=== PATIENT | female | born 1995 | race Hispanic/Latino ===

== ENCOUNTER 2017-04-09 20:40 | Outpatient (CLI) | payer OTHER, SELFPAY ==
[~2017-04-09] VITALS: Ht 154.9 cm; Wt 68.0 kg
[2017-04-09 20:50] VITALS: BP 125/73
[2017-04-09] MEDS ORDERED: LR 1,000 ML IV SCH (21:10)
[2017-04-09] MEDS ORDERED: LACTATED RINGER'S 1000 ML IV ONE (21:15)
[2017-04-09 21:32] LABS: MEAN CORPUSCULAR HEMOGLOBIN 32.4 pg (27.0-33.0); MEAN CORPUSCULAR HGB CONC 33.9 g/dl (32.0-36.5); MEAN CORPUSCULAR VOLUME 95.4 fl (80.0-96.0); RED CELL DISTRIBUTION WIDTH 12.8 % (11.5-14.5); WHITE BLOOD COUNT 6.8 K/mm3 (4.0-10.0)
[2017-04-09] MEDS ORDERED: TERBUTALINE SULFATE 1 MG/ML VIAL (J3105) As Ordered ONE (21:33)
[2017-04-09 21:36] VITALS: BP 114/57
[2017-04-09 22:09] VITALS: BP 125/58
[2017-04-09] MEDS: TERBUTALINE SULFATE 1 MG/ML VIAL (J3105) SC SCH ×2 (22:11→22:45)
--- NOTE | 2017-04-09 22:41 | HPE ---
DATE OF ADMISSION: 04/09/2017 This lady is a 21-year-old 2, para 1, LMP 08/04/2016, EDC 05/11/2017 at 35 and 3 weeks of gestation with a history of contractions since Monday. [place] the park this [place] and the contractions worsened so she came in. No loss of fluid or vaginal discharge. PAST HISTORY: October 2012 at 39 weeks, spontaneous vaginal delivery, epidural, male 6 pounds 12 ounces. Labs are A+, HIV negative, hepatitis negative, RPR negative, rubella immune. Varicella by history. Pap normal. Urine negative. Gonorrhea and chlamydia negative. 1-hour glucose 85. The patient is Zika negative. She had been in [place] recently and was tested. On examination she appeared to be distressed. Symphysis fundus height is 35. Category one strip. Cervix is 1 cm, maybe to mid position, -3 station, 50% effaced. No vaginal bleeding, loss or discharge. Four quadrant bowel sounds are noted and the uterus is nontender. Blood pressure 125/93, respirations 18, pulse 88, temperature 98.4. Urine 1.005, pH 7, +2 leukocytes. Our plan of management is to hydrate the patient in anticipation of trying to decrease the contractions. A series of terbutaline to be instituted and if she is at potential risk for delivery, then steroids will be initiated to enhance lung maturity. We will evaluate her in 1 hour time to see if things have quieted down. If she persists, we will pursue the steroid approach. The rest of the examination is unremarkable. She is normocephalic, atraumatic. Neck full range of motion. Pupils equal and reactive to light. Distal pulses symmetric. No evidence of DVT, PE or superficial phlebitis. Lungs are clear bilaterally to bases. No wheezes or rhonchi. No CVA tenderness. No rashes, lesions or pruritus. No arthralgia, myalgia. No complaints of cough, wheezes, shortness of breath or dyspnea on exertion. No chest pain. Not bleeding. Neurologically complete. No incontinency, urgency or frequency. No nausea, vomiting, diarrhea or constipation. No diabetic issues. No ENGINEERING OFFICER issues. Past medical and surgical history is unremarkable. Family history is noncontributory. She does not smoke or drink. She does not abuse drugs. She is . She is a housewife. There is no domestic violence. In summary, we have a 35 and 5 weeks of gestation who has had 3 days of intermittent contractions, question as to whether she will pursue on for delivery or not and we will hydrate, terbutaline and possibly use of steroids.
[2017-04-10] MEDS ORDERED: BETAMETHASONE SOLUSPAN 6MG/ML INJ 5ML (J0702) IM SCH (01:00)
== END 2017-04-10 01:20 | disposition home or self-care (01) ==
LOC: M LDO 20:40
PROVIDERS: ATTEND Obstetrics & Gynecology
DX: O47.03 False labor before 37 completed weeks of gestation, third trimester (principal); Z3A.35 35 weeks gestation of pregnancy
CPT/HCPCS: 59025; 85027; 86780; 86850; 86900; 86901; 96372; J0702; J3105

== ENCOUNTER 2017-04-10 12:07 | Outpatient (CLI) | payer OTHER, SELFPAY ==
[~2017-04-10] VITALS: Ht 154.9 cm; Wt 68.0 kg
[2017-04-10 12:23] VITALS: BP 103/55
[2017-04-10] MEDS ORDERED: BETAMETHASONE SOLUSPAN 6MG/ML INJ 5ML (J0702) IM ONE (12:30)
[2017-04-10 12:51] VITALS: BP 93/52
[2017-04-10 13:51] VITALS: BP 114/57
== END 2017-04-10 13:55 | disposition home or self-care (01) ==
LOC: M LDO 12:07
PROVIDERS: ATTEND Student in an Organized Health Care Education/Training Program
DX: O47.03 False labor before 37 completed weeks of gestation, third trimester (principal); Z3A.35 35 weeks gestation of pregnancy

== ENCOUNTER 2017-04-13 19:13 | Outpatient (CLI) | payer OTHER ==
[~2017-04-13] VITALS: Ht 154.9 cm; Wt 68.0 kg
[2017-04-13 19:19] VITALS: BP 118/64
[2017-04-13] MEDS ORDERED: PRENTAB55 PO (20:09)
== END 2017-04-13 20:21 | disposition home or self-care (01) ==
LOC: M LDO 19:13
PROVIDERS: ATTEND Obstetrics & Gynecology
DX: O60.03 Preterm labor without delivery, third trimester (principal); Z3A.36 36 weeks gestation of pregnancy

== ENCOUNTER 2017-04-26 01:47 | Outpatient (CLI) | payer OTHER ==
[~2017-04-26] VITALS: Ht 154.9 cm; Wt 69.0 kg
[~2017-04-26 01:47] MED LIST: PRENTAB55 PO
--- NOTE | 2017-04-26 19:22 | HPE ---
DATE OF ADMISSION: 04/26/2017 This lady is a 22-year-old 2, para 1, last menstrual period (LMP) 08/04/2016, estimated date of confinement (EDC) 05/11/2017 at 37 weeks of gestation, had a history of postcoital bleeding after intercourse with contractions. PAST HISTORY: 2013: 39 weeks spontaneous vaginal delivery male, epidural, 6 pounds 1 ounce. LABORATAORY: A+, HIV negative, hepatitis negative, RPR negative, rubella immune. Varicella by history. Pap normal. Group B Streptococcus (GBS) negative. Gonorrhea and chlamydia are negative. Urine was negative. A one-hour glucose was 85. On examination, no distress. Symphysis fundus height is 37, vertex, occiput anterior (OA) posterior high. Cervix is soft, thick. Multiple os. Scant bleeding. Uterine irritability is noted on the monitor. Category one strip. No contractions after an hour and one-half. Urine is 1005, pH 7, negative, negative, negative. Blood pressure 115/66, respirations 18, pulse 83 and temperature 98.4. The rest the examination is unremarkable. She has category one strip. Normocephalic, atraumatic. Pupils equal and reactive to light. Neck: Full range of motion. Distal pulses symmetric. No evidence of deep venous thrombosis (DVT), pulmonary embolism (PE) or superficial phlebitis. CHEST: Clear bilaterally to bases. No wheezes or rhonchi. No costovertebral angle (CVA) tenderness. Four quadrant bowel sounds. Appropriate symphysis fundus height. I mentioned category one strip. No rashes, lesions or pruritus. No arthralgia or myalgia. No complaints of cough, wheezes, shortness of breath or dyspnea on exertion. No chest pain, not bleeding. Neurologically complete. No incontinency, urgency or frequency. No nausea, vomiting, diarrhea or constipation. No diabetic issues. PAST GYNECOLOGICAL (DATA WAREHOUSING ENGINEER) HISTORY: None. PAST MEDICAL HISTORY: None. PAST SURGICAL HISTORY: None. FAMILY HISTORY: Noncontributory. SOCIAL HISTORY: Does not smoke, drink or abuse drugs. She is . There is no domestic violence. Good support from the . We have a 37-week who has some postcoital bleeding after intercourse. Precautions were given. Has appointment today at the office, which we told her she can cancel and make for next week. Again, 37+ week of gestation. Category one. Minimal irritability. Patient tolerated procedure well. No evidence of active bleeding. Discharged undelivered.
== END 2017-04-26 05:26 | disposition home or self-care (01) ==
LOC: M LDO 01:47
PROVIDERS: ATTEND Obstetrics & Gynecology
DX: O99.89 Other specified diseases and conditions complicating pregnancy, childbirth and the puerperium (principal); N93.0 Postcoital and contact bleeding; Z3A.37 37 weeks gestation of pregnancy

== ENCOUNTER 2017-05-05 08:23 | Inpatient (IN) | payer OTHER ==
[2017-05-05] VITALS (10 sets, daily range): BP systolic 111–129; BP diastolic 56–84
[2017-05-05] MEDS ORDERED: LACTATED RINGER'S 1000 ML IV STA (08:56)
[2017-05-05] MEDS: DOCUSATE SODIUM 100 MG CAP PO SCH ×2 (09:00→20:13)
[2017-05-05] MEDS: PRENATAL VITAMINS CHEWABLE TABLET PO SCH (09:00)
[2017-05-05] MEDS ORDERED: OXYTOCIN INJ 10 UNITS/ML VIAL (J2590) IV ONE (09:35)
[2017-05-05] MEDS ORDERED: DIBUCAINE 1% OINTMENT 30GM TOP PRN (10:00)
[2017-05-05] MEDS ORDERED: METHYLERGONOVINE MALEATE 0.2 MG/ML VIAL (J2210) IM PRN (10:00)
[2017-05-05] MEDS ORDERED: ACETAMINOPHEN 500 MG TAB PO PRN (10:00)
[2017-05-05] MEDS ORDERED: IBUPROFEN 800 MG TAB PO PRN (10:00)
[2017-05-05] MEDS ORDERED: PROMETHAZINE 25 MG TAB PO PRN (10:00)
[2017-05-05] MEDS ORDERED: MEASLES,MUMPS,RUBELLA VACCINE INJ (MMR-II) (90707) SC SCH (10:00)
[2017-05-05] MEDS ORDERED: ONDANSETRON 4MG/2ML VIAL (J2405) IV PRN (10:00)
[2017-05-05] MEDS ORDERED: OXYTOCIN DRIP 30 UNITS in APPROPRIATE DILUENT 1 EA IV SCH (10:00)
[2017-05-05] MEDS ORDERED: RHOGAM 300 MCG (1500 IU) INJ (J2790) IM SCH (10:00)
[2017-05-05 18:46] LABS: MEAN CORPUSCULAR HEMOGLOBIN 32.2 pg (27.0-33.0); MEAN CORPUSCULAR HGB CONC 33.4 g/dl (32.0-36.5); MEAN CORPUSCULAR VOLUME 96.3 fl (80.0-96.0); RED CELL DISTRIBUTION WIDTH 13.2 % (11.5-14.5); WHITE BLOOD COUNT 10.2 K/mm3 (4.0-10.0)
[2017-05-06 05:30] VITALS: BP 119/58
--- NOTE | 2017-05-06 07:44 | DS.PDOC ---
Discharge Summary General Date of Admission May 05, 2017 at 08:47 Date of Discharge [id number] Discharge Summary PROCEDURES PERFORMED DURING STAY: spontaneous vaginal delivery ADMITTING DIAGNOSIS: 1. Active Labor DISCHARGE DIAGNOSES: 1. Healthy male infant HOSPITAL COURSE: Admitted for active labor and delivery. Uncomplicated, see delivery note. DISCHARGE MEDICATIONS: Motrin, Tylenol, Colace, Lanolin Physical exam: see note from this morning LABORATORY DATA: Please see below. ACTIVITY: as tolerated. Nothing in vagina for 6 weeks. DIET: regular DISPOSITION:stable TIME SPENT ON DISCHARGE: Greater than 15 minutes. Sessions Vital Signs/I&Os Vital Signs Date Time Temp Pulse Resp B/P (MAP) Pulse Ox O2 Delivery O2 Flow Rate FiO2 05/06/17 05:30 98.0 66 20 119/58 (78) 97 Room Air I&O- Last 24 Hours up to 6 AM 05/06/17 05:59 Output Total 1100 ml Balance -1100 ml Laboratory Data Labs 24H Laboratory Tests 2 05/05/17 08:54: Serology Scanned Report Hepatitis B Testing 05/05/17 18:31: Syphilis Serology NONREACTIVE CBC/BMP Laboratory Tests 05/05/17 18:31 Red Blood Count 3.86 L, Mean Corpuscular Volume 96.3 H, Mean Corpuscular Hemoglobin 32.2, Mean Corpuscular Hemoglobin Concent 33.4, Red Cell Distribution Width 13.2 Discharge Medications Scheduled Multivitamins/ ( 19) 1 Tab Tab, 1 TAB PO DAILY, (Reported) Allergies Coded Allergies: No Known Allergies (Unverified , 04/09/17) SESSIONS,SHELIA Davis MD May 06, 2017 07:44
--- NOTE | 2017-05-06 07:48 | IPNPDOC ---
Text Note Date of Service The patient was seen on 05/06/17. NOTE PPD1 prog note States feeling well, no complaints. No heavy VB. Pain controlled. Voiding, ambulatory. Bonding well and breast feeding well. VSSAF CTAB RRR Ut at U-2, firm Ext no CCE a/p: Doing well. d/c this morning. To bonding if baby not released. Sessions Josse MARIEE, I+O Josse CASTANO I+O Laboratory Tests 05/05/17 18:31 Red Blood Count 3.86 L, Mean Corpuscular Volume 96.3 H, Mean Corpuscular Hemoglobin 32.2, Mean Corpuscular Hemoglobin Concent 33.4, Red Cell Distribution Width 13.2 Vital Signs Date Time Temp Pulse Resp B/P (MAP) Pulse Ox O2 Delivery O2 Flow Rate FiO2 05/06/17 05:30 98.0 66 20 119/58 (78) 97 Room Air I&O- Last 24 Hours up to 6 AM 05/06/17 06:00 Output Total 1100 ml Balance -1100 ml SESSIONS,SHELIA Davis MD May 06, 2017 07:48
[2017-05-06] MEDS: DOCUSATE SODIUM 100 MG CAP PO SCH (08:01)
[2017-05-06] MEDS: PRENATAL VITAMINS CHEWABLE TABLET PO SCH (08:01)
[2017-05-06] MEDS ORDERED: IBUP-1114 PO (12:33)
[2017-05-06] MEDS ORDERED: ACET50TA PO (12:33)
[2017-05-06] MEDS ORDERED: COLA100C5 PO (12:33)
== END 2017-05-06 19:40 | disposition home or self-care (01) | DRG 775 ==
LOC: M LDO 08:23 → M LDI 08:47 → M OBS 11:53
PROVIDERS: ADMIT Obstetrics & Gynecology; ATTEND Obstetrics & Gynecology
PROC: 10E0XZZ Delivery of Products of Conception, External Approach (ICD-10-PCS; principal; 2017-05-05)
DX: O80 Encounter for full-term uncomplicated delivery (principal); Z3A.39 39 weeks gestation of pregnancy; Z37.0 Single live birth

== ENCOUNTER 2017-09-21 16:59 | Emergency (ER) | payer OTHER | END 2017-09-21 19:00 | disposition home or self-care (01) | LOC: M ED 16:59 | DX: Z04.1 Encounter for examination and observation following transport accident (principal); M62.830 Muscle spasm of back; V43.52XA Car driver injured in collision with other type car in traffic accident, initial encounter; Y92.410 Unspecified street and highway as the place of occurrence of the external cause; Z79.3 Long term (current) use of hormonal contraceptives | CPT/HCPCS: 99283 ==

== ENCOUNTER 2018-09-26 07:15 | Day surgery (SDC) | payer OTHER ==
[~2018-09-26] VITALS: Ht 154.9 cm; Wt 59.3 kg
[~2018-09-26 07:15] MED LIST changes: +ADVI200T PO; +COLA100C5 PO; +CYCL10TA PO; +IBUP-1022 PO; +IBUP-1114 PO; +LR 1,000 ML IV SCH; +MAPA500T17 PO; +NEXP1IMP SC; +XULA1DIS TOP
[2018-09-26 07:55] LABS: HEMATOCRIT 39.9 % (36.0-47.0); HEMOGLOBIN 13.1 g/dl (12.0-15.5); MEAN CORPUSCULAR HEMOGLOBIN 30.8 pg (27.0-33.0); MEAN CORPUSCULAR HGB CONC 32.8 g/dl (32.0-36.5); MEAN CORPUSCULAR VOLUME 93.9 fl (80.0-96.0); PLATELET COUNT, AUTOMATED 216 10^3/uL (150-450); RED BLOOD COUNT 4.25 10^6/uL (4.00-5.40)
[2018-09-26] MEDS ORDERED: cefoTEtan INJ 2GM VIAL (S0074 PER 500MG) As Ordered ONE (08:02)
[2018-09-26] MEDS ORDERED: cefoTEtan DISODIUM 2 GM in D5W MINI-BAG PLUS 50 ML IV ONE (08:15)
[2018-09-26 08:20] LABS: BLOOD UREA NITROGEN 13 MG/DL (7-18); CALCIUM LEVEL 8.7 MG/DL (8.5-10.1); CARBON DIOXIDE LEVEL 29 MEQ/L (21-32); CHLORIDE LEVEL 104 MEQ/L (98-107); CREATININE FOR GFR 0.63 MG/DL (0.55-1.30); GLOMERULAR FILTRATION RATE > 60.0 (>60); GLUCOSE, FASTING 92 MG/DL (70-100); HCG, SERUM QUANTITATIVE < 1.0 MIU/ML; POTASSIUM SERUM 4.5 MEQ/L (3.5-5.1); SODIUM LEVEL 138 MEQ/L (136-145)
[2018-09-26] MEDS ORDERED: BUPIVACAINE HCL 0.5% 10 ML VIAL As Ordered ONE (09:08)
[2018-09-26] MEDS ORDERED: ACETAMINOPHEN 650 MG SUPP As Ordered ONE (09:08)
[2018-09-26] MEDS ORDERED: fentaNYL 250 MCG/5 ML INJECTION (J3010) As Ordered ONE (09:41)
[2018-09-26] MEDS ORDERED: ONDANSETRON 4MG/2ML VIAL (J2405) As Ordered ONE (09:41)
[2018-09-26] MEDS ORDERED: LIDOCAINE 2% INJ 100 MG/5 ML SDV (FOR ANES.) As Ordered ONE (09:41)
[2018-09-26] MEDS ORDERED: ROCURONIUM BROMIDE 50 MG/5 ML VIAL As Ordered ONE (09:41)
[2018-09-26] MEDS ORDERED: ePHEDrine SULFATE 25 MG/5 ML(5MG/ML) SYRINGE As Ordered ONE (09:41)
[2018-09-26] MEDS ORDERED: dexameTHASONE 4 MG/ML 1ML VIAL (J1100) As Ordered ONE (09:41)
[2018-09-26] MEDS ORDERED: GLYCOPYRROLATE INJ 0.2 MG/ML 2 ML VIAL As Ordered ONE (09:41)
[2018-09-26] MEDS ORDERED: KETOROLAC 60 MG/2 ML VIAL (J1885) As Ordered ONE (09:41)
[2018-09-26] MEDS ORDERED: MIDAZOLAM INJ 2 MG/2 ML VIAL (J2250) As Ordered ONE (09:41)
[2018-09-26] MEDS ORDERED: NEOSTIGMINE 10 MG/10 ML VIAL (J2710) As Ordered ONE (09:41)
[2018-09-26] MEDS ORDERED: PROPOFOL 200 MG/20 ML VIAL As Ordered ONE (09:41)
[2018-09-26] MEDS ORDERED: HYDROmorphone HCL 2 MG/ML 1ML VIAL (J1170) As Ordered ONE (09:44)
[2018-09-26] MEDS ORDERED: ONDANSETRON 4MG/2ML VIAL (J2405) IV PRN (10:45)
[2018-09-26] MEDS ORDERED: LR 1,000 ML IV SCH (10:45)
[2018-09-26] MEDS ORDERED: HYDROMORPHONE HCL 0.5 MG/ 0.5 ML SYRINGE (J1170 PER 1) IV PRN (10:45)
[2018-09-26] MEDS ORDERED: fentaNYL 100 MCG/2 ML INJECTION (J3010) IV PRN (10:45)
[2018-09-26] MEDS ORDERED: PERCOCET 5MG/325MG TAB PO PRN (10:45)
[2018-09-26 15:45] VITALS: BP 108/56
== END 2018-09-26 16:25 | disposition home or self-care (01) ==
LOC: M SDC 07:15
PROVIDERS: ATTEND Obstetrics & Gynecology
DX: Z30.2 Encounter for sterilization (principal); Z79.899 Other long term (current) drug therapy
CPT/HCPCS: 36415; 58661; 80048; 84702; 85027; 88302; J1100; J1170; J1885; J2250; J2405; J2710; J3010